=== PATIENT | female | born 1970 | race Caucasian/White ===

== ENCOUNTER 2022-08-08 00:03 | Emergency (ER) | payer MEDICARE, MEDICAID, SELFPAY ==
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
[2022-08-08 00:38] VITALS: BP 132/96; PULSE 88; RESP 20; TEMP 36.6; O2SAT 97; BMI 33.5
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
--- OUTSIDE RECORDS SUMMARY | 2022-08-08 01:00 | XMS_ITS | Continuity of Care Document ---
:1970 Author Organization [facility] Address [address] [place] [address]- Care Team Providers Name Role Phone John Flowers MD Primary Care Physician Encounter [facility] [place] Date(s): 04/24/21 - 04/24/[address] [address]- Discharge Disposition: A-D/C Walkout Attending Physician: Dandre Pastrana MD Admitting Physician: Dandre Pastrana MD Referring Physician: Not on Staff, Referring MD Allergies, Adverse Reactions, Alerts No Known Medication Allergies Immunizations Given and Recorded Vaccine Date Status Refusal Reason influenza virus vaccine, inactivated 10/06/15 Given influenza virus vaccine, inactivated1 11/14/11 Given tetanus/diphtheria/pertussis, acel(Tdap) 11/01/10 Given Tet/Diphth/Acel, Pertussis (oldterm)2 04/29/08 Given Influenza Virus Vaccine (oldterm)3 08/04/07 Given 1Admin Note: vis given Admin Note: VIS [id number] Note: VIS Medications BiPAP Machine See Instructions, # 1 each, Maintenance, Auto BiPAP with EPAP min of 5 and IPAP max of 12 with PS of5, 01/16/21 8:35:00 EDT, Compound Start Date: 01/16/21 Status: Orderedfluconazole 150 mg oral tablet 1 tablet = 150 mg, By Mouth, Once, # 1 tablet, 0 Refills, Soft Stop, 12/12/20 13:11:00 EST, Tablet, [facility][id number], Partial fill upon patient request if the prescription is for a schedule II opioid drug., 155, cm, 02/12/20 12:37:00 EDT, H... Start Date: 12/12/20 Status: Ordered Problem List Condition Effective Dates Status Health Status Informant Occipital neuralgia(Confirmed) Active Glaucoma(Confirmed) Active Lumbar radiculitis(Confirmed) Active Obstructive sleep apnea(Confirmed) Active Posttraumatic stress Active disorder(Confirmed) Vital Signs Most recent to oldest [Reference Range]: 1 2 Weight 72.5 kg (04/24/21 11:41 AM) Oxygen Saturation [94-100 %] 97 % 98 % (04/24/21 11:41 AM) (04/24/21 11:01 AM) Pulse Rate [55-90 bpm] 80 bpm 90 bpm (04/24/21 11:41 AM) (04/24/21 11:01 AM) Blood Pressure [90-138/55-84 mm Hg] 118/91 mm Hg (04/24/21 11:41 AM) Respiratory Rate [16-30 br/min] 16 br/min 18 br/mi n (04/24/21 11:41 AM) (04/24/21 11:01 AM) Temperature [96.8-100.4 DegF] 99.2 DegF (04/24/21 11:41 AM) Mode of Delivery (Oxygen) Room air Room air (04/24/21 11:41 AM) (04/24/21 11:01 AM) Blood pressure sites Arm, left (04/24/21 11:41 AM) Temperature Route Oral (04/24/21 11:41 AM) Dry Weight 72.5 kg (04/24/21 11:41 AM) Social History Social History Type Response Smoking Status Never smoker entered on: 12/03/13 Sex
--- OUTSIDE RECORDS SUMMARY | 2022-08-08 01:00 | XMS_ITS | Continuity of Care Document ---
:1970 Author Organization [facility] Address [address] [place] [address]- Care Team Providers Name Role Phone Lionel FOFNAA, John Guerrero Primary Care Physician Encounter [facility] Date(s): 05/04/20 - 06/03/20 [facility] [address] [place] [address]- [facility] Allergies, Adverse Reactions, Alerts No Known Medication Allergies Immunizations Given and Recorded Vaccine Date Status Refusal Reason influenza virus vaccine, inactivated 10/06/15 Given influenza virus vaccine, inactivated1 11/14/11 Given tetanus/diphtheria/pertussis, acel(Tdap) 11/01/10 Given Tet/Diphth/Acel, Pertussis (oldterm)2 04/29/08 Given Influenza Virus Vaccine (oldterm)3 08/04/07 Given 1Admin Note: vis given Admin Note: VIS [id number] Note: VIS Medications BiPAP Machine See Instructions, # 1 each, Maintenance, Auto BiPAP with EPAP min of 5 and IPAP max of 12 with PS of5, 05/30/20 17:13:00 EDT, Compound Start Date: 05/30/20 Status: Ordered Problem List Condition Effective Dates Status Health Status Informant Occipital neuralgia(Confirmed) Active Glaucoma(Confirmed) Active Lumbar radiculitis(Confirmed) Active Obstructive sleep apnea(Confirmed) Active Posttraumatic stress Active disorder(Confirmed) Social History Social History Type Response Smoking Status Never smoker entered on: 12/03/13 Sex
--- OUTSIDE RECORDS SUMMARY | 2022-08-08 01:01 | XMS_ITS | Continuity of Care Document ---
:1970 Author Organization [facility] Address [address] [place] [address]- Care Team Providers Name Role Phone John Flowers MD Primary Care Physician [place] [facility] [place] 05/06/[place] - 06/05/21 [facility] [address] [place], [place] [address] Attending Physician: AdmSheree feng Admitting Physician: AdmtrSheree Referring Physician: Admtr, Ar8 Allergies, Adverse Reactions, Alerts No Known Medication Allergies Immunizations Given and Recorded Vaccine Date Status Refusal Reason influenza virus vaccine, inactivated 10/06/15 Given influenza virus vaccine, inactivated1 11/14/11 Given tetanus/diphtheria/pertussis, acel(Tdap) 11/01/10 Given Tet/Diphth/Acel, Pertussis (oldterm)2 04/29/08 Given Influenza Virus Vaccine (oldterm)3 08/04/07 Given 1Admin Note: vis given Admin Note: VIS [id number] Note: VIS Medications BiPAP Machine See Instructions, # 1 each, Maintenance, Auto BiPAP with EPAP min of 5 and IPAP max of 12 with PS of5, 01/16/21 8:35:00 EDT, Compound Start Date: 01/16/21 Status: Orderedfluconazole 150 mg oral tablet 1 tablet = 150 mg, By Mouth, Once, # 1 tablet, 0 Refills, Soft Stop, 12/12/20 13:11:00 EST, Tablet, [facility] #[id number], Partial fill upon patient request if the [...]
--- OUTSIDE RECORDS SUMMARY | 2022-08-08 01:01 | XMS_ITS | Continuity of Care Document ---
:1970 Author Organization [facility] Address [address] [place] [address]- Care Team Providers Name Role Phone Lionel FOFANA, John Guerrero Primary Care Physician Encounter [id number] Date(s): 05/30/20 - 06/29/20 [facility] [address] [address]- [facility] Attending Physician: Sheree Rivas Admitting Physician: AdmtrSheree Referring Physician: Admtr, Ar8 Allergies, Adverse Reactions, Alerts No Known Medication Allergies Immunizations Given and Recorded Vaccine Date Status Refusal Reason influenza virus vaccine, inactivated 10/06/15 Given influenza virus vaccine, inactivated1 11/14/11 Given tetanus/diphtheria/pertussis, acel(Tdap) 11/01/10 Given Tet/Diphth/Acel, Pertussis (oldterm)2 04/29/08 Given Influenza Virus Vaccine (oldterm)3 08/04/07 Given 1Admin Note: vis given Admin Note: VIS [id number] Note: VIS Medications BiPAP Machine See Instructions, [...]
--- OUTSIDE RECORDS SUMMARY | 2022-08-08 01:01 | XMS_ITS | Continuity of Care Document ---
:1970 Author Organization [facility] Address [address] [place] [address]- Care Team Providers Name Role Phone Lionel FOFANA, John Guerrero Primary Care Physician Encounter [facility] Date(s): 02/20/22 - 03/22/22 [facility] [address] [place] [id number] Attending Physician: AdmtrSheree Allergies, Adverse Reactions, Alerts No Known Medication Allergies Immunizations Given and Recorded Vaccine Date Status Refusal Reason SARS-CoV-2 (COVID-19) mRNA-1273 vaccine 03/19/21 Recorded SARS-CoV-2 (COVID-19) mRNA-1273 vaccine 02/19/21 Recorded influenza virus vaccine, inactivated 10/06/15 Given influenza virus vaccine, inactivated1 11/14/11 Given tetanus/diphtheria/pertussis, acel(Tdap) 11/01/10 Given Tet/Diphth/Acel, Pertussis (oldterm)2 04/29/08 Given Influenza Virus Vaccine (oldterm)3 08/04/07 Given 1Admin Note: vis given Admin Note: VIS [id number] Note: VIS Medications BiPAP Machine See Instructions, # 1 each, Maintenance, Auto BiPAP with EPAP min of 5 and IPAP max of 12 with PS of5, 01/16/21 8:35:00 EDT, Compound Start Date: 01/16/21 Status: Orderedfluconazole 150 mg oral tablet 1 tablet = 150 mg, By Mouth, Once, # 1 tablet, 0 Refills, Soft Stop, 12/12/20 13:11:00 EST, Tablet, [facility] #[id number], Partial fill upon patient request if the prescription is for a schedule II opioid drug., 155, cm, 02/12/20 12:37:00 EDT, H... Start Date: 12/12/20 Status: OrderedFLUoxetine 10 mg oral capsule 10 mg, 1, capsule, By Mouth, Daily, # 30 capsule, Refills 1, Tot. Refills 1, Maintenance, 06/19/21 10:40:00 EDT, Route to Pharmacy Electronically, [facility] #[id number], Partial fill upon patientrequest if the prescription is for a schedule II... Start Date: 06/19/21 Status: Ordered Problem List Condition Effective Dates Status Health Status Informant Occipital neuralgia(Confirmed) Active Glaucoma(Confirmed) Active Lumbar radiculitis(Confirmed) Active Obese class I(Confirmed) Active Obstructive sleep apnea(Confirmed) Active Posttraumatic stress Active disorder(Confirmed) Social History Social History Type Response Smoking Status Never smoker entered on: 12/03/13 Sex
--- OUTSIDE RECORDS SUMMARY | 2022-08-08 01:01 | XMS_ITS | Continuity of Care Document ---
:1970 Author Organization [facility] Address [address] [place] [address]- Care Team Providers Name Role Phone John Flowers MD Primary Care Physician [place] [facility] [place] 12/06[place]20 - 01/05/21 [facility] [address] [place] [id number] Allergies, Adverse Reactions, Alerts No Known Medication Allergies Immunizations Given and Recorded Vaccine Date Status Refusal Reason influenza virus vaccine, inactivated 10/06/15 Given influenza virus vaccine, inactivated1 11/14/11 Given tetanus/diphtheria/pertussis, acel(Tdap) 11/01/10 Given Tet/Diphth/Acel, Pertussis (oldterm)2 04/29/08 Given Influenza Virus Vaccine (oldterm)3 08/04/07 Given 1Admin Note: vis given Admin Note: VIS [id number] Note: VIS Medications BiPAP Machine See Instructions, # 1 each, Maintenance, Auto BiPAP with EPAP min of 5 and IPAP max of 12 with PS of5, 12/02/20 16:17:00 EST, Compound Start Date: 12/02/20 Status: Orderedfluconazole 150 mg oral tablet 1 tablet = 150 mg, By Mouth, Once, # 1 tablet, 0 Refills, Soft Stop, 12/12/20 13:11:00 EST, Tablet, [facility] #[id number], Partial fill upon patient request if the [...]
--- OUTSIDE RECORDS SUMMARY | 2022-08-08 01:01 | XMS_ITS | Continuity of Care Document ---
:1970 Author Organization [facility] Address [address] [place] [address]- Care Team Providers Name Role Phone John Flowers MD Primary Care Physician Encounter [facility] Date(s): 05/23/21 - 06/22/21 [facility] [address] [place] [id number] Allergies, Adverse Reactions, Alerts No Known Medication Allergies Immunizations Given and Recorded Vaccine Date Status Refusal Reason SARS-CoV-2 (COVID-19) mRNA-1273 vaccine 03/19/21 Recorded SARS-CoV-2 (COVID-19) mRNA-1272 vaccine 02/19/21 Recorded influenza virus vaccine, inactivated 10/06/15 Given influenza virus vaccine, inactivated1 11/14/11 Given tetanus/diphtheria/pertussis, acel(Tdap) 11/01/10 Given Tet/Diphth/Acel, Pertussis (oldterm)2 04/29/08 Given Influenza Virus Vaccine (oldterm)3 08/04/07 Given 1Admin Note: vis given Admin Note: VIS [id number] Note: VIS Medications BiPAP Machine See Instructions, # 1 each, Maintenance, Auto BiPAP with EPAP min of 5 and IPAP max of 12 with PS of5, 01/16/21 8:35:00 EDT, Compound Start Date: 01/16/21 Status: Orderedfluconazole 150 mg oral tablet 1 tablet = 150 mg, By Mouth, Once, # 1 tablet, 0 Refills, Soft Stop, 12/12/20 13:11:00 EST, Tablet, [facility] #[id number], Partial fill upon patient request if the prescription is for a schedule II opioid drug., 155, cm, 02/12/20 12:37:00 EDT, H... Start Date: 12/12/20 Status: OrderedFLUoxetine 10 mg oral capsule 10 mg, 1, capsule, By Mouth, Daily, # 30 capsule, Refills 1, Tot. Refills 1, Maintenance, 06/19/21 10:40:00 EDT, Route to Pharmacy Electronically, [facility] #[id number], Partial fill upon patientrequest if the prescription is for a schedule II... Start Date: 06/19/21 Status: Ordered Problem List Condition Effective Dates Status Health Status Informant Occipital neuralgia(Confirmed) Active Glaucoma(Confirmed) Active Lumbar radiculitis(Confirmed) Active Obstructive sleep apnea(Confirmed) Active Posttraumatic stress Active disorder(Confirmed) Social History Social History Type Response Smoking Status Never smoker entered on: 12/03/13 Sex
--- OUTSIDE RECORDS SUMMARY | 2022-08-08 01:01 | XMS_ITS | Continuity of Care Document ---
:1970 Author Organization [facility] Address [address] [place] [address]- Care Team Providers Name Role Phone Lionel FOFANA, John Guerrero Primary Care Physician [facility]counter [facility] Date(s): 08/17/21 - 09/16/21 [facility] [address] [place] [id number] Allergies, Adverse Reactions, Alerts No Known Medication Allergies Immunizations Given and Recorded Vaccine Date Status Refusal Reason SARS-CoV-2 (COVID-19) mRNA-1273 vaccine 03/19/21 Recorded SARS-CoV-2 (COVID-19) mRNA-1273 vaccine 02/19/21 Recorded influenza virus vaccine, inactivated 10/06/15 Given influenza virus vaccine, inactivated1 11/14/11 Given tetanus/diphtheria/pertussis, acel(Tdap) 11/01/10 Given Tet/Diphth/Acel, Pertussis (oldterm)2 04/29/08 Given Influenza Virus Vaccine (oldterm)3 08/04/07 Given 1Admin Note: vis given Admin Note: VIS [id number] Note: VIS Medications BiPAP Machine See Instructions, # 1 each, Maintenance, Auto BiPAP with EPAP min of 5 and IPAP max of 12 with PS of5, 01/16/21 8:35:00 EDT, Compound Start Date: 01/16/21 Status: Orderedfluconazole 150 mg oral tablet 1 tablet = 150 mg, By Mouth, Once, # 1 tablet, 0 Refills, Soft Stop, 12/12/20 13:11:00 EST, Tablet, [facility] #[id number], Partial fill upon patient request if the prescription is for a schedule II opioid drug., 155, cm, 02/12/20 12:37:00 EDT, H... Start Date: 12/12/20 Status: OrderedFLUoxetine 10 mg oral capsule 10 mg, 1, capsule, By Mouth, Daily, # 30 capsule, Refills 1, Tot. Refills 1, Maintenance, 06/19/21 10:40:00 EDT, Route to Pharmacy Electronically, [facility] #[id number], Partial fill upon patientrequest if the prescription [...]
--- OUTSIDE RECORDS SUMMARY | 2022-08-08 01:01 | XMS_ITS | Continuity of Care Document ---
:1970 Author Organization [facility] Address [address] [place] [address]- Care Team Providers Name Role Phone Lionel FOFANA, John Guerrero Primary Care Physician [facility]counter [facility] Date(s): 09/06/21 - 10/06/21 [facility] [address] [place] [id number] Attending Physician: AdmtrSheree Allergies, Adverse Reactions, Alerts [...] 1Admin Note: vis given Admin Note: VIS [id number] Note: VIS Medications BiPAP Machine See Instructions, # 1 each, Maintenance, Auto BiPAP with EPAP min of 5 and IPAP max of 12 with PS of5, 01/16/21 8:35:00 EDT, Compound Start Date: 01/16/21 Status: Orderedfluconazole 150 mg oral tablet 1 tablet = 150 mg, By Mouth, Once, # 1 tablet, 0 Refills, Soft Stop, 12/12/20 13:11:00 EST, Tablet, [facility] #[id number], Partial fill upon patient request if the prescription is for a schedule II opioid drug., 155, cm, 02/12/20 12:37:00 EDT, H... Start Date: 12/12/20 Status: OrderedFLUoxetine 10 mg oral capsule 10 mg, 1, capsule, By Mouth, Daily, # 30 capsule, Refills 1, Tot. Refills 1, Maintenance, 06/19/21 10:40:00 EDT, Route to Pharmacy Electronically, [facility] #[id number], Partial fill upon patientrequest if the prescription [...]
--- OUTSIDE RECORDS SUMMARY | 2022-08-08 01:01 | XMS_ITS | Continuity of Care Document ---
:1970 Author Organization [facility] Address [address] [place] [address]- Care Team Providers Name Role Phone John Flowers MD Primary Care Physician Encounter [facility] Date(s): 06/23/21 - 08/17/21 [facility] [address] [place] [id number] Attending Physician: John Flowers MD Admitting Physician: John Flowers MD Allergies, Adverse Reactions, Alerts No Known [...] 1Admin Note: vis given Admin Note: VIS [id number] Note: VIS Medications BiPAP Machine See Instructions, # 1 each, Maintenance, Auto BiPAP with EPAP min of 5 and IPAP max of 12 with PS of5, 01/16/21 8:35:00 EDT, Compound Start Date: 01/16/21 Status: Orderedfluconazole 150 mg oral tablet 1 tablet = 150 mg, By Mouth, Once, # 1 tablet, 0 Refills, Soft Stop, 12/12/20 13:11:00 EST, Tablet, [facility] #[id number], Partial fill upon patient request if the prescription is for a schedule II opioid drug., 155, cm, 02/12/20 12:37:00 EDT, H... Start Date: 12/12/20 Status: OrderedFLUoxetine 10 mg oral capsule 10 mg, 1, capsule, By Mouth, Daily, # 30 capsule, Refills 1, Tot. Refills 1, Maintenance, 06/19/21 10:40:00 EDT, Route to Pharmacy Electronically, [facility] #[id number], Partial fill upon patientrequest if the prescription is for a schedule II... Start Date: 06/19/21 Status: Ordered Problem List Condition Effective Dates Status Health Status Informant Occipital neuralgia(Confirmed) Active Glaucoma(Confirmed) Active Lumbar radiculitis(Confirmed) Active Obstructive sleep apnea(Confirmed) Active Posttraumatic stress Active disorder(Confirmed) Social History Social History Type Response Smoking Status Never smoker entered on: 12/03/13 Sex
--- OUTSIDE RECORDS SUMMARY | 2022-08-08 01:01 | XMS_ITS | Continuity of Care Document ---
:1970 Author Organization [facility] Address [address] [place] [address]- Care Team Providers Name Role Phone Lionel FOFANA, John Guerrero Primary Care Physician Encounter [facility] [place] Date(s): 12/14/21 - 12/21/21 [facility] [address] [place], [place] [address] Attending Physician: Alvarez Frye MD Referring Physician: John Flowers MD Allergies, Adverse Reactions, [...] 1Admin Note: vis given Admin Note: VIS [id number] Note: VIS Medications BiPAP Machine See Instructions, # 1 each, Maintenance, Auto BiPAP with EPAP min of 5 and IPAP max of 12 with PS of5, 01/16/21 8:35:00 EDT, Compound Start Date: 01/16/21 Status: Orderedfluconazole 150 mg oral tablet 1 tablet = 150 mg, By Mouth, Once, # 1 tablet, 0 Refills, Soft Stop, 12/12/20 13:11:00 EST, Tablet, [facility] #[id number], Partial fill upon patient request if the prescription is for a schedule II opioid drug., 155, cm, 02/12/20 12:37:00 EDT, H... Start Date: 12/12/20 Status: OrderedFLUoxetine 10 mg oral capsule 10 mg, 1, capsule, By Mouth, Daily, # 30 capsule, Refills 1, Tot. Refills 1, Maintenance, 06/19/21 10:40:00 EDT, Route to Pharmacy Electronically, [facility] #[id number], Partial fill upon patientrequest if the prescription is for a schedule II... Start Date: 06/19/21 Status: Ordered Problem List Condition Effective Dates Status Health Status Informant Occipital neuralgia(Confirmed) Active Glaucoma(Confirmed) Active Lumbar radiculitis(Confirmed) Active Obese class I(Confirmed) Active Obstructive sleep apnea(Confirmed) Active Posttraumatic stress Active disorder(Confirmed) Vital Signs Most recent to oldest [Reference Range]: 1 Height 155 cm (12/14/21 1:31 PM) Oxygen Saturation [94-100 %] 98 % (12/14/21 1:31 PM) Pulse Rate [55-90 bpm] 70 bpm (12/14/21 1:31 PM) Blood Pressure [90-138/55-84 mm Hg] 137/89 mm Hg (12/14/21 1:31 PM) Respiratory Rate [16-30 br/min] 15 br/min *L* (12/14/21 1:31 PM) Temperature [96.8-100.4 DegF] 98.0 DegF (12/14/21 1:31 PM) Mode of Delivery (Oxygen) Room air (12/14/21 1:31 PM) Blood pressure sites Arm, left (12/14/21 1:31 PM) Temperature Route Temporal (12/14/21 1:31 PM) Social History Social History Type Response Smoking Status Never smoker entered on: 12/03/13 Sex
--- OUTSIDE RECORDS SUMMARY | 2022-08-08 01:01 | XMS_ITS | Continuity of Care Document ---
:1970 Author Organization [facility] Address [address] [place] [address]- Care Team Providers Name Role Phone Lionel FOFANA, John Guerrero Primary Care Physician [facility]counter [facility] Date(s): 02/19/22 - 03/22/22 [facility] [address] [place] [id number] Attending Physician: Ochoa Thomas MD Admitting Physician: Ochoa Thomas MD Allergies, Adverse Reactions, Alerts No Known [...] 1Admin Note: vis given Admin Note: VIS [id number] Note: VIS Medications BiPAP Machine See Instructions, # 1 each, Maintenance, Auto BiPAP with EPAP min of 5 and IPAP max of 12 with PS of5, 01/16/21 8:35:00 EDT, Compound Start Date: 01/16/21 Status: Orderedfluconazole 150 mg oral tablet 1 tablet = 150 mg, By Mouth, Once, # 1 tablet, 0 Refills, Soft Stop, 12/12/20 13:11:00 EST, Tablet, [facility] #[id number], Partial fill upon patient request if the prescription is for a schedule II opioid drug., 155, cm, 02/12/20 12:37:00 EDT, H... Start Date: 12/12/20 Status: OrderedFLUoxetine 10 mg oral capsule 10 mg, 1, capsule, By Mouth, Daily, # 30 capsule, Refills 1, Tot. Refills 1, Maintenance, 06/19/21 10:40:00 EDT, Route to Pharmacy Electronically, [facility] #[id number], Partial fill upon patientrequest if the prescription [...]
--- OUTSIDE RECORDS SUMMARY | 2022-08-08 01:01 | XMS_ITS | Continuity of Care Document ---
:1970 Author Organization [facility] Address [address] [place] [address]- Care Team Providers Name Role Phone Lionel FOFANA, John Guerrero Primary Care Physician [place] [facility] [place] 09/[place]20 [place] 10/09/20 [facility] [address] [place] [id number] Attending Physician: AdmSheree feng Admitting Physician: Admtr, Sheree Referring Physician: Admtr, Ar8 Allergies, Adverse Reactions, Alerts No Known Medication Allergies Immunizations Given and Recorded Vaccine Date Status Refusal Reason influenza virus vaccine, inactivated 10/06/15 Given influenza virus vaccine, inactivated1 11/14/11 Given tetanus/diphtheria/pertussis, acel(Tdap) 11/01/10 Given Tet/Diphth/Acel, Pertussis (oldterm)2 04/29/08 Given Influenza Virus Vaccine (oldterm)3 08/04/07 Given 1Admin Note: vis given Admin Note: VIS [id number] Note: VIS Medications BiPAP Machine See Instructions, [...]
--- OUTSIDE RECORDS SUMMARY | 2022-08-08 01:01 | XMS_ITS | Continuity of Care Document ---
:1970 Author Organization [facility] Address [address] [place] [address]- Care Team Providers Name Role Phone John Flowers MD Primary Care Physician Encounter [facility] [place] Date(s): 12/14/21 - 01/13/22 [facility] [address] [place], [place] [address] Attending Physician: AdmSheree feng Admitting Physician: Admtr, [...] 1Admin Note: vis given Admin Note: VIS [id number] Note: VIS Medications BiPAP Machine See Instructions, # 1 each, Maintenance, Auto BiPAP with EPAP min of 5 and IPAP max of 12 with PS of5, 01/16/21 8:35:00 EDT, Compound Start Date: 01/16/21 Status: Orderedfluconazole 150 mg oral tablet 1 tablet = 150 mg, By Mouth, Once, # 1 tablet, 0 Refills, Soft Stop, 12/12/20 13:11:00 EST, Tablet, [facility] #[id number], Partial fill upon patient request if the prescription is for a schedule II opioid drug., 155, cm, 02/12/20 12:37:00 EDT, H... Start Date: 12/12/20 Status: OrderedFLUoxetine 10 mg oral capsule 10 mg, 1, capsule, By Mouth, Daily, # 30 capsule, Refills 1, Tot. Refills 1, Maintenance, 06/19/21 10:40:00 EDT, Route to Pharmacy Electronically, [facility] #[id number], Partial fill upon patientrequest if the prescription [...]
--- OUTSIDE RECORDS SUMMARY | 2022-08-08 01:01 | XMS_ITS | Continuity of Care Document ---
:1970 Author Organization [facility] Address [address] [place] [id number]- Care Team Providers Name Role Phone John Flowers MD Primary Care Physician Encounter [facility] Date(s): 01/13/21 - 02/12/21 [facility] [address] [address] Attending Physician: Admtr, Sheree Admitting Physician: Admtr, Ar8 Referring Physician: Admtr, Ar8 Allergies, Adverse Reactions, Alerts No Known Medication Allergies Immunizations Given and Recorded Vaccine Date Status Refusal Reason influenza virus vaccine, inactivated 10/06/15 Given influenza virus vaccine, inactivated1 11/14/11 Given tetanus/diphtheria/pertussis, acel(Tdap) 11/01/10 Given Tet/Diphth/Acel, Pertussis (oldterm)2 04/29/08 Given Influenza Virus Vaccine (oldterm)3 08/04/07 Given 1Admin Note: vis given Admin Note: VIS [id number] Note: VIS Medications BiPAP Machine See Instructions, # 1 each, Maintenance, Auto BiPAP with EPAP min of 5 and IPAP max of 12 with PS of5, 01/16/21 8:35:00 EDT, Compound Start Date: 01/16/21 Status: Orderedfluconazole 150 mg oral tablet 1 tablet = 150 mg, By Mouth, Once, # 1 tablet, 0 Refills, Soft Stop, 12/12/20 13:11:00 EST, Tablet, [facility] #[id number], Partial fill upon patient request if the [...]
--- OUTSIDE RECORDS SUMMARY | 2022-08-08 01:01 | XMS_ITS | Continuity of Care Document ---
:1970 Author Organization [facility] Address [address] [place] [address]- Care Team Providers Name Role Phone John Flowers MD Primary Care Physician Encounter [facility] Date(s): 05/06/21 - 05/13/21 [facility] [address], [place] [address] Encounter Diagnosis Pharyngitis (Discharge Diagnosis) - 05/06/21 Attending Physician: Alvarez Frye MD Referring Physician: John Flowers MD Allergies, Adverse Reactions, Alerts No Known Medication Allergies Immunizations Given and Recorded Vaccine Date Status Refusal Reason influenza virus vaccine, inactivated 10/06/15 Given influenza virus vaccine, inactivated1 11/14/11 Given tetanus/diphtheria/pertussis, acel(Tdap) 11/01/10 Given Tet/Diphth/Acel, Pertussis (oldterm)2 04/29/08 Given Influenza Virus Vaccine (oldterm)3 08/04/07 Given 1Admin Note: vis given Admin Note: VIS [id number] Note: VIS Medications BiPAP Machine See Instructions, # 1 each, Maintenance, Auto BiPAP with EPAP min of 5 and IPAP max of 12 with PS of5, 01/16/21 8:35:00 EDT, Compound Start Date: 01/16/21 Status: Orderedfluconazole 150 mg oral tablet 1 tablet = 150 mg, By Mouth, Once, # 1 tablet, 0 Refills, Soft Stop, 12/12/20 13:11:00 EST, Tablet, [facility] #[id number], Partial fill upon patient request if the prescription is for a schedule II opioid drug., 155, cm, 02/12/20 12:37:00 EDT, H... Start Date: 12/12/20 Status: Orderedpenicillin V potassium 500 mg oral tablet 0.5 tablet = 250 mg, By Mouth, Every 8 hours, for 10 days, on an empty stomach, # 15 tablet, 0 Refills, Acute 05/16/21 10:28:00 EDT, 05/06/21 10:28:00 EDT, Tablet, [id number], Partial fill upon patient request if the prescription is f... Start Date: 05/06/21 Stop Date: 05/16/21 Status: Ordered Problem List Condition Effective Dates Status Health Status Informant Occipital neuralgia(Confirmed) Active Glaucoma(Confirmed) Active Lumbar radiculitis(Confirmed) Active Obstructive sleep apnea(Confirmed) Active Posttraumatic stress Active disorder(Confirmed) Diagnosis Diagnosis Type Effective Dates Health Status Clinical Serv ice Informant Pharyngitis Discharge 05/06/21 Diagnosis Vital Signs Most recent to oldest [Reference Range]: 1 Height 155 cm (05/06/21 10:06 AM) Oxygen Saturation [94-100 %] 98 % (05/06/21 10:06 AM) Pulse Rate [55-90 bpm] 65 bpm (05/06/21 10:06 AM) Blood Pressure [90-138/55-84 mm Hg] 127/82 mm Hg (05/06/21 10:06 AM) Respiratory Rate [16-30 br/min] 20 br/min (05/06/21 10:06 AM) Temperature [96.8-100.4 DegF] 98.4 DegF (05/06/21 10:06 AM) Mode of Delivery (Oxygen) Room air (05/06/21 10:06 AM) Blood pressure sites Arm, right (05/06/21 10:06 AM) Temperature Route Temporal (05/06/21 10:06 AM) Social History Social History Type Response Smoking Status Never smoker entered on: 12/03/13 Sex
--- OUTSIDE RECORDS SUMMARY | 2022-08-08 01:01 | XMS_ITS | Continuity of Care Document ---
:1970 Author Organization [facility] Address [address] [place] [address]- Care Team Providers Name Role Phone Lionel FOFANA, John Guerrero Primary Care Physician Encounter [facility] Date(s): 12/01/19 - 12/11/19 [facility] [address] [place] [address]- [facility] Attending Physician: Admtr, Ar8 Allergies, Adverse Reactions, Alerts No Known Medication Allergies Immunizations Given and Recorded Vaccine Date Status Refusal Reason influenza virus vaccine, inactivated 10/06/15 Given influenza virus vaccine, inactivated1 11/14/11 Given tetanus/diphtheria/pertussis, acel(Tdap) 11/01/10 Given Tet/Diphth/Acel, Pertussis (oldterm)2 04/29/08 Given Influenza Virus Vaccine (oldterm)3 08/04/07 Given 1Admin Note: vis given Admin Note: VIS [id number] Note: VIS Medications BiPAP Machine See Instructions, # 1 each, Maintenance, Auto BiPAP with EPAP min of 5 and IPAP max of 12 with PS of5, 04/21/19 17:04:14 EDT, Compound Start Date: 04/21/19 Status: Ordereddiclofenac 1% topical gel 1 application, Topically, 4 times a day, # 100 Gm, 0 Refills, Maintenance, 12/01/19 16:17:00 EST, Gel, [facility] #[id number], 154.94, cm, 12/01/19 16:09:00 EST, Height Start Date: 12/01/19 Status: Ordereddiclofenac sodium 50 mg oral delayed release tablet 1 tablet, By Mouth, 2 times a day, # 180 tablet, 0 Refills, Maintenance, 12/07/19 9:25:00 EST, [facility] #[id number], 154.94, cm, 12/01/19 16:09:00 EST, Height Start Date: 12/07/19 Status: OrderedIbuprofen PRN, Refills 0, Maintenance, as needed for pain, 10/08/18 14:47:29 EST Start Date: 10/08/18 Status: OrderedTylenol 325 mg oral tablet 650 mg, 2, tablet, By Mouth, Every 4 hours, PRN, # 120 tablet, Refills 0, Maintenance, as needed forpain, 10/08/18 14:47:40 EST Start Date: 10/08/18 Status: Ordered Problem List Condition Effective Dates Status Health Status Informant Occipital neuralgia(Confirmed) Active Glaucoma(Confirmed) Active Lumbar radiculitis(Confirmed) Active Obstructive sleep apnea(Confirmed) Active Posttraumatic stress Active disorder(Confirmed) Social History Social History Type Response Smoking Status Never smoker entered on: 12/03/13 Sex
--- OUTSIDE RECORDS SUMMARY | 2022-08-08 01:01 | XMS_ITS | Continuity of Care Document ---
:1970 Author Organization [facility] Address [address] [place] [address]- Care Team Providers Name Role Phone John Flowers MD Primary Care Phys[id number]): [facility]20 [facility] [address] [place] [address] [facility] Attending Physician: Nel Gómez MD Admitting Physician: Nel Gómez MD Referring Physician: John Flowers MD Allergies, Adverse Reactions, Alerts No Known Medication Allergies Immunizations Given and Recorded Vaccine Date Status Refusal Reason influenza virus vaccine, inactivated 10/06/15 Given influenza virus vaccine, inactivated1 11/14/11 Given tetanus/diphtheria/pertussis, acel(Tdap) 11/01/10 Given Tet/Diphth/Acel, Pertussis (oldterm)2 04/29/08 Given Influenza Virus Vaccine (oldterm)3 08/04/07 Given 1Admin Note: vis given Admin Note: VIS [id number] Note: VIS Medications BiPAP Machine See Instructions, [...]
[2022-08-08 02:43] VITALS: BP 134/85; PULSE 78; RESP 17; O2SAT 99
[2022-08-08 05:16] VITALS: BP 107/72; PULSE 70; RESP 17; TEMP 36.9; O2SAT 97
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
[2022-08-08] MEDS: diphenhydrAMINE HCL 50 MG/ML VIAL IVPUSH (07:42)
[2022-08-08 09:55] LABS: MANUAL DIFF FLAG NO
[2022-08-08] MEDS: HYDROmorphone HCl 0.5 MG/0.5 ML SYRINGE IVPUSH (09:55)
[2022-08-08] MEDS: Acetaminophen 325 MG TABLET 650 MG PO (09:55)
[2022-08-08 10:01] LABS: Basophils Absolute Auto 0.1 X10*3/uL (0.0-0.2); Basophils Percent Auto 0.6 % (0-2); Eosinophils Absolute Auto 0.1 X10*3/uL (0.0-0.4); Hematocrit 35.5 % (37.0-47.0); Hemoglobin 11.4 g/dl (12.0-16.0); Imm Gran Abs Auto 0.04 X10*3/uL (0.00-0.03); Imm Gran Pct Auto 0.4 % (0.0-0.4); Lymphocytes Absolute Auto 1.7 X10*3/uL (1.2-4.9); Mean Corpuscular HGB Conc 32.1 g/dl (31.0-35.0); Mean Corpuscular Hemoglobin 27.5 pg (27.0-33.0); Mean Corpuscular Volume 85.7 fL (80.0-98.0); Mean Platelet Volume 10.2 fL (9.4-12.3); Monocytes Absolute Auto 0.8 X10*3/uL (0.1-1.2); Monocytes Percent Auto 7.8 % (2-11); Neutrophils Absolute Auto 7.3 x10*3/uL (2.0-8.3); Neutrophils Percent Auto 73.2 % (45-73); Platelet Count 259 X10*3/uL (160-400); Red Blood Count 4.14 X10*6/uL (4.20-5.50); Red Cell Distribution Width 15.2 % (11.0-16.0); White Blood Count 9.9 X10*3/uL (4.8-10.8)
[2022-08-08 10:08] LABS: INTERNATIONAL NORM RATIO 1.1 (0.9-1.1); Prothrombin Time 12.4 SEC (10.0-13.1)
[2022-08-08 10:11] LABS: Partial Thromboplastin Time 27.7 SEC (26.0-36.4)
[2022-08-08 10:12] LABS: IDNOW Serial# 9DB6401D; Influenza A Negative (Negative); Influenza B2 Negative (Negative)
[2022-08-08 10:13] LABS: COVID-19 Test Negative (Negative); IDNOW Serial# 55D5AD1C
[2022-08-08 10:22] VITALS: BP 117/70; PULSE 67; RESP 16; TEMP 36.9; O2SAT 96
[2022-08-08 10:50] LABS: Alanine Aminotransferase 16 U/L (0-31); Albumin Level 3.8 g/dL (3.5-5.0); Alkaline Phosphatase 72 U/L (39-117); Anion Gap 11 (12-20); Aspartate Amino Transferase 17 U/L (5-31); Bilirubin Total 0.5 mg/dL (0.0-1.0); Blood Urea Nitrogen 8 mg/dL (9-16); Calcium 8.9 mg/dL (8.4-10.2); Carbon Dioxide 24 mmol/L (22-29); Chloride 107 mmol/L (96-108); Creatinine Clr Calc Pharmacy 81.7; Estimated Glomerular Filt Rate > 60; Glucose Random 91 mg/dL (60-115); Potassium 3.9 mmol/L (3.3-5.1); Sodium 138 mmol/L (135-145); Total Protein 6.9 g/dL (6.5-8.0)
== END 2022-08-08 11:08 | disposition home or self-care (01) ==
PROVIDERS: Emergency Provider Emergency Medicine Emergency Medical Services
DX: S09.90XA Unspecified injury of head, initial encounter (principal); S39.012A Strain of muscle, fascia and tendon of lower back, initial encounter; R51.9 Headache, unspecified; R20.0 Anesthesia of skin; Y04.2XXA Assault by strike against or bumped into by another person, initial encounter; Y93.9 Activity, unspecified; Y92.9 Unspecified place or not applicable; Y99.9 Unspecified external cause status; Z79.899 Other long term (current) drug therapy; Z20.822 Contact with and (suspected) exposure to COVID-19
CPT/HCPCS: 36415; 70450; 70486; 72125; 72131; 80053; 85025; 85610; 85730; 87502; 87635; 96374; 96375; 99284; J1170; J1200

== ENCOUNTER 2022-08-11 22:33 | Emergency (ER) | payer MEDICARE, MEDICAID, SELFPAY ==
[2022-08-11 22:34] VITALS: BP 140/83; PULSE 77; RESP 18; TEMP 36.2; O2SAT 96; BMI 31.8
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
== END 2022-08-12 01:48 | disposition home or self-care (01) ==
PROVIDERS: Emergency Provider Emergency Medicine
DX: S00.12XA Contusion of left eyelid and periocular area, initial encounter (principal); Y04.2XXA Assault by strike against or bumped into by another person, initial encounter; Y93.9 Activity, unspecified; Y92.9 Unspecified place or not applicable; Y99.9 Unspecified external cause status; Z79.899 Other long term (current) drug therapy
CPT/HCPCS: 99282

== ENCOUNTER 2023-08-31 19:20 | Emergency (ER) | payer MEDICARE, MEDICAID, SELFPAY ==
[2023-08-31 19:22] VITALS: BP 150/89; PULSE 103; RESP 20; TEMP 37.4; O2SAT 100; BMI 31.6
[2023-08-31 19:57] LABS: COVID-19 Test Negative (Negative); IDNOW Serial# 9DB6401D; IDNOW Serial# BCCEAD1C; Influenza A Positive (Negative); Influenza B2 Negative (Negative)
--- NOTE | 2023-08-31 20:25 | ED_ITS ---
HPI - General Adult General Chief complaint: General Medical Stated complaint: headache,stuffy nose body aches Time Seen by Provider: 08/31/23 20:25 Source: patient Mode of arrival: ambulatory Limitations: no limitations History of Present Illness HPI narrative: 52 year old female with no significant pmhx presents to the ED today with dry cough, nasal congestion, body aches, and headache since last night. Reports visiting her mom at [facility] yesterday and upon returning home began to have flu-like symptoms. Has not taken anything at home for this. Headache is diffuse, worse with coughing, described as a pressure sensation. No known sick contacts. COVID and flu vaccines UTD. Denies dizziness, vision changes, sore throat, difficulty swallowing, chest pain or shortness of breath, nausea/ vomiting, abdominal pain, diarrhea or constipation. Related Data Previous Rx's Medication Instructions Recorded [id number]-oswrflwhaqjra-isfvfabj 1 tab PO Q6H PRN pain #20 tabs 08/08/22 50 mg-325 mg-40 mg tablet cyclobenzaprine 10 mg tablet 10 mg PO TID PRN muscle spasm #14 08/08/22 tabs ibuprofen 600 mg tablet 600 mg PO Q6H PRN pain #30 tabs 08/08/22 lidocaine 5 % topical patch 1 patch topical DAILY #30 ea 08/08/22 ondansetron 4 mg disintegrating 4 mg PO Q8H PRN nausea and 08/08/22 tablet vomiting #20 tabs cyclobenzaprine 10 mg tablet 10 mg PO TID PRN muscle spasm #10 08/12/22 tabs ibuprofen 600 mg tablet 600 mg PO TID PRN pain #14 tabs 08/12/22 Allergies Allergy/AdvReac Type Severity Reaction Status Date / Time No Known Allergies Allergy Verified 08/31/23 19:25 Review of Systems Review of Systems: Constitutional: No fever, chills, fatigue, night sweats, weight changes ENT/Mouth: No ear pain, hearing loss, +nasal congestion, sinus pain, rhinorrhea, sore throat Eyes: No eye pain, swelling, redness, vision changes, discharge Cardio: No chest pain, palpitations, ALCAZAR, orthopnea, peripheral edema Pulm: No SOB, +cough, sputum, wheezing, dyspnea, hemoptysis GI: No nausea, vomiting, hematemesis, abdominal pain, diarrhea, constipation, hematochezia, melena : No irregular bleeding, dysuria, frequency, urgency, hesitancy, hematuria, flank pain, urinary flow changes, urinary incontinence or retention MSK: No back pain, neck pain, joint pain, myalgias Skin: No lesions, rashes Neuro: No weakness, numbness, paresthesias, LOC, dizziness, +headache All other systems reviewed and are negative. [facility] Past Medical History Attestation statement: The following information was validated with the patient. Source: old records reviewed and nursing notes reviewed Medical History Migraines Glaucoma Social History Alcohol intake: never Smoked in Last 30 Days: No Use of substances other than those prescribed or required for medical reasons: No Advance Directives: No Advance Directives Information Provided: No Patient : No Physical Exam ED Vital Signs: Vital Signs - 24 hr 08/31/23 19:22 08/31/23 20:31 08/31/23 21:19 Temperature 99.4 F 102.4 F H 102.2 F H Pulse Rate 103 H 95 Respiratory Rate 20 18 Blood Pressure 150/89 H 137/72 Pulse Oximetry 100 96 Oxygen Delivery Method Room Air Room Air BMI result Body Mass Index 31.6 Febrile Const General: cooperative, no acute distress, alert, awake and ill appearing Orientation/consciousness: patient oriented x3 Limitations: no limitations HENMT Other: + posterior oropharynx without erythema or edema. No tonsillar exudates. Uvula is midline. Controlling secretions and speaking in complete sentences. Ears: hearing grossly normal bilaterally, external ears normal, TM's normal bilaterally, EAC's normal, mastoids normal and no periauricular adenopathy General nose exam: Normal external nose present Face and sinus: Yes normal facial exam and Yes sinuses nontender Eyes General: appearance normal, both eyes and all related structures Conjunctivae: conjunctivae normal Sclerae: sclerae normal Pupils: Equal, round and reactive pupils present Neck Neck: Yes normal visual inspection, Yes no lymphadenopathy and Yes no meningeal signs Resp Effort & Inspection: normal respiratory effort, able to speak in complete sentences, no respiratory distress and no use of accessory muscles Auscultation: clear to auscultation bilaterally and no wheezes Cardio Rate: regular rate Rhythm: regular rhythm Peripheral pulses: radial pulses present GI Inspection: Yes normal to inspection Palpation (GI): Soft to palpation and nontender Skin General skin exam: no rashes or lesions noted Neuro General: patient oriented x3, gait normal, moves all extremities and no meningeal signs Cranial nerves: Yes Equal, round and reactive pupils present Extrem General: Yes normal to inspection and Yes capillary refill normal Course Course Course Narrative: Viral serology positive for influenza A > patient aware. Patient febrile to 102F in the ED. Tylenol ordered. Reevaluation(s) Reevaluation #1: [id number]-- On re-evaluation, patient's vital signs have stabilized. She is no longer tachycardic. Her temperature is gradually decreasing after Tylenol administration. I feel comfortable discharging patient home with strict return precautions. Discussed taking Tylenol and ibuprofen for fever and body aches at home. All questions answered at this time. Patient is agreeable disposition stable for discharge. Medications Administered Discontinued Medications Generic Name Dose Route Start Last Admin Trade Name Freq PRN Reason Stop Dose Admin Acetaminophen 975 mg 08/31/23 20:37 08/31/23 20:48 Acetaminophen 325 Mg Tablet PO 08/31/23 20:38 975 mg ONCE ONE Administration Medical Decision Making Medical Decision Making [facility] Narrative: 52 year old female with no significant pmhx presents to the ED today with dry cough, nasal congestion, body aches, and headache since last night. VS notable for fever of 102F > tylenol given. Patient is nontoxic appearing and in NAD. Sleeping in room. No sinus tenderness. Posterior oropharynx without erythema/edema/tonsilar exudates. Uvula midline. Controlling secretions and speaking complete sentences. RRR. Lungs clear to auscultation bilaterally, no wheezes. Exam nonfocal. Clinical concern for viral syndrome. Concern for [place] vs migraines. Unlikely pneumonia, strep, mono, [employer], retropharyngeal abscess, epiglottitis, otitis media/externa. Unlikely ICH, CVA/TIA, GCA. Viral serology obtained in triage. Will review results and re-evaluate patient. Differential Diagnosis Differential Diagnoses: The differential diagnosis associated with the presentation includes As above. Admission/Observation Not indicated. Lab Data [facility] Lab Attestation statement: I reviewed the patient's lab results. As above. Labs: Lab Results 08/31/23 Range/Units 19:31 COVID-19 (MONIQUE) Negative (Negative) COVID-19 Clin Com See Note Influenza Type A (LIZETTE) Positive A (Negative) Influenza Type B (LIZETTE) Negative (Negative) Influenza A & B Note See Note External Record Review External record reviewed: Inpatient record Prescription Management I considered prescription management with: Pain Medication Critical Care Time Critical Care Time Critical Care Time: No Discharge Plan Discharge Clinical Impression: Influenza A Patient Disposition: Home, Self-Care Instructions: Influenza (ED), Flu Shot (Vaccine) for Adults (ED) Additional Instructions: You tested positive for influenza type A today. This is a virus and does not warrant antibiotic treatment. The treatment for this is symptomatic and should resolve on its own over the next week. You were given a dose of Tylenol in the emergency department for fever today. Please continue taking Tylenol and ibuprofen at home as needed for fever or body aches. Please follow-up with your primary care provider as needed. If her symptoms persist or worsen please return to the emergency department. The case of an emergency call 911. Prescriptions: No Action lumgszfkym-kvfcgxfdkhfvv-oeks 50-325-40 mg tablet 1 tab PO Q6H PRN (Reason: pain) Qty: 20 0RF cyclobenzaprine 10 mg tablet 10 mg PO TID PRN (Reason: muscle spasm) Qty: 14 0RF lidocaine 5 % adhesive patch,medicated 1 patch topical DAILY Qty: 30 0RF Rx Instructions: leave on most painful area for up to 12 hrs ibuprofen 600 mg tablet 600 mg PO Q6H PRN (Reason: pain) Qty: 30 0RF ondansetron 4 mg tablet,disintegrating 4 mg PO Q8H PRN (Reason: nausea and vomiting) Qty: 20 0RF ibuprofen 600 mg tablet 600 mg PO TID PRN (Reason: pain) Qty: 14 0RF cyclobenzaprine 10 mg tablet 10 mg PO TID PRN (Reason: muscle spasm) Qty: 10 0RF Referrals: Physician,Unknown J [Primary Care Provider] - Stand Alone Forms: Work/School Release Interventions: ED Discharge Assessment Last Done: 08/31/23 21:33 Discharge Date/Time: 08/31/23 21:35
[2023-08-31 20:31] VITALS: BP 137/72; PULSE 95; RESP 18; TEMP 39.1; O2SAT 96
[2023-08-31] MEDS: Acetaminophen 325 MG TABLET 975 MG PO (20:48)
[2023-08-31 21:19] VITALS: TEMP 39
== END 2023-08-31 21:35 | disposition home or self-care (01) ==
PROVIDERS: Emergency Provider Emergency Medicine Emergency Medical Services
DX: J10.1 Influenza due to other identified influenza virus with other respiratory manifestations (principal); Z11.52 Encounter for screening for COVID-19
CPT/HCPCS: 87502; 87635; 99283; 99284

== ENCOUNTER 2023-12-25 09:11 | Emergency (ER) | payer OTHER, SELFPAY | END 2023-12-25 10:27 | disposition left against medical advice (07) | LOC: HO.ED 10:26 | PROVIDERS: Emergency Provider Emergency Medicine | DX: H93.8X2 Other specified disorders of left ear (principal) ==

== ENCOUNTER 2023-12-30 17:19 | Emergency (ER) | payer OTHER, SELFPAY ==
[2023-12-30 18:43] VITALS: BP 119/85; PULSE 91; RESP 16; TEMP 36.6; O2SAT 99; BMI 31.5
--- NOTE | 2023-12-30 18:45 | ED.GENADULT ---
HPI - General Adult General Chief complaint: Ear Problems Stated complaint: left ear pain Time Seen by Provider: 12/30/23 19:00 Source: patient Mode of arrival: ambulatory History of Present Illness HPI narrative: 53-year-old female who reports left-sided scalp/ear/facial pain without any noted rashes, fevers, chills, visual changes, runny nose, sore throat. Patient reports that she does suffer from migraines but they are well controlled at this time. She also denies any sick contacts. Related Data Previous Rx's Medication Instructions Recorded brmwirnnlf-bgtgmnbnzzwvg-kukslius 1 tab PO Q6H PRN pain #20 tabs 08/08/22 50 mg-325 mg-40 mg tablet cyclobenzaprine 10 mg tablet 10 mg PO TID PRN muscle spasm #14 08/08/22 tabs ibuprofen 600 mg tablet 600 mg PO Q6H PRN pain #30 tabs 08/08/22 lidocaine 5 % topical patch 1 patch topical DAILY #30 ea 08/08/22 ondansetron 4 mg disintegrating 4 mg PO Q8H PRN nausea and 08/08/22 tablet vomiting #20 tabs cyclobenzaprine 10 mg tablet 10 mg PO TID PRN muscle spasm #10 08/12/22 tabs ibuprofen 600 mg tablet 600 mg PO TID PRN pain #14 tabs 08/12/22 Allergies Allergy/AdvReac Type Severity Reaction Status Date / Time No Known Allergies Allergy Verified 08/31/23 19:25 Review of Systems Review of Systems: Pertinent positives and negatives as stated in HPI [facility] Past Medical History Source: nursing notes reviewed Medical History Migraines Glaucoma Social History Social History Alcohol intake: never Advance Directives: No Advance Directives Information Provided: Yes Physical Exam ED Vital Signs: Vital Signs - 24 hr 12/30/23 18:43 12/30/23 20:30 Temperature 98 F 98.6 F Pulse Rate 91 76 Respiratory Rate 16 16 Blood Pressure 119/85 148/93 H Pulse Oximetry 99 97 Oxygen Delivery Method Room Air Room Air BMI result Body Mass Index 31.5 VITAL SIGNS: Reviewed. GENERAL: Well developed, well nourished, in no acute distress. HEAD: Normocephalic/atraumatic EYES: PERRLA, EOMI EARS: Ext canals without abnormality, TMs non-bulging and non-erythematous NOSE: Nares patent bilateral OROPHARYNX: no oral lesions noted, posterior pharynx clear and non-erythematous without noted tonsillar enlargement/erythema/exudates NECK: Supple, no adenopathy LUNGS: Normal breath sounds. No adventitious sounds or accessory muscle use. SpO2<97> CARDIOVASCULAR: Regular rate and rhythm without noted murmurs ABDOMEN: Soft, non-tender, non-distended with bowel sounds. MUSCULOSKELETAL: No tenderness, deformities, or effusions noted on gross inspection. EXTREMITIES: No cyanosis, clubbing or edema. SKIN: Inspection of the skin reveals no rashes NEUROLOGIC: Alert and oriented x 4. Strength and sensation to light touch were grossly intact x 4. Course Course Course Narrative: RME performed by Camilla Candelario PA-C. Patient is a 53 year old assigned female at presenting to the emergency department with a headache and left ear pain. Detailed physical exam and review of systems are deferred to the swimming pool maintenance. Swabs ordered. Patient placed back in the waiting room pending room availability and results. Medications Administered Discontinued Medications Generic Name Dose Route Start Last Admin Trade Name Freq PRN Reason Stop Dose Admin Acetaminophen 975 mg 12/30/23 19:51 12/30/23 20:26 Acetaminophen 325 Mg Tablet PO 12/30/23 19:52 975 mg ONCE ONE Administration Ibuprofen 400 mg 12/30/23 19:51 12/30/23 20:27 Ibuprofen 400 Mg Tablet PO 12/30/23 19:52 400 mg ONCE ONE Administration Medical Decision Making Medical Decision Making [facility] Narrative: 53-year-old female with history and clinical presentation, DDX: AOM, viral illness, trigeminal neuralgia, migraine, no evidence to suggest shingles. I reviewed all investigations and viral testing is negative for COVID-19/influenza. Patient provided with combination analgesics and discharged home as she has follow-up appointment. Differential Diagnosis Differential Diagnoses: The differential diagnosis associated with the presentation includes Please see the discussion above Admission/Observation Consideration of admission/observation: Escalation of care including admission/observation considered Please see the discussion above Lab Data Labs: Lab Results 12/30/23 Range/Units 18:48 Influenza Type A (PCR) NEGATIVE (Negative) Influenza Type B (PCR) NEGATIVE (Negative) RSV RNA Qual (PCR) NEGATIVE (Negative) SARS-CoV-2 RNA (RT-PCR) NEGATIVE (Negative) External Record Review External record reviewed: Outpatient record and Prior outpatient labs Critical Care Time Critical Care Time Critical Care Time: Yes Total Critical Care Time: 30 Attestation: I personally attest to this time spent taking care of the patient. Discharge Plan Discharge Clinical Impression: Trigeminal neuralgia, Left ear pain Patient Disposition: Home, Self-Care Instructions: Trigeminal Neuralgia (ED), Paresthesia (ED), Earache (ED) Additional Instructions: 1. Tylenol 1000 mg, orally, every 6 hours as needed for pain control. Do not exceed 4000 mg. 2. Ibuprofen 400 mg, orally with milk or food, every 6 hours as needed for pain control. 3. Please follow-up with your primary care doctor at your earliest convenience to discuss the possibility of trigeminal neuralgia. Return to the ER for any worsening symptoms. Prescriptions: No Action yzgdqhkdaa-zdqafdljchqfy-gcfm 50-325-40 mg tablet 1 tab PO Q6H PRN (Reason: pain) Qty: 20 0RF cyclobenzaprine 10 mg tablet 10 mg PO TID PRN (Reason: muscle spasm) Qty: 14 0RF lidocaine 5 % adhesive patch,medicated 1 patch topical DAILY Qty: 30 0RF Rx Instructions: leave on most painful area for up to 12 hrs ibuprofen 600 mg tablet 600 mg PO Q6H PRN (Reason: pain) Qty: 30 0RF ondansetron 4 mg tablet,disintegrating 4 mg PO Q8H PRN (Reason: nausea and vomiting) Qty: 20 0RF ibuprofen 600 mg tablet 600 mg PO TID PRN (Reason: pain) Qty: 14 0RF cyclobenzaprine 10 mg tablet 10 mg PO TID PRN (Reason: muscle spasm) Qty: 10 0RF Referrals: John Flowers MD [Primary Care Provider] - Interventions: ED Discharge Assessment Last Done: 12/30/23 20:30 Discharge Date/Time: 12/30/23 20:31
[2023-12-30 19:29] LABS: Influenza A PCR NEGATIVE (Negative); Influenza B PCR NEGATIVE (Negative); Resp Syncy Virus RNA Qual PCR NEGATIVE (Negative); SARS COV2 PCR INHOUSE NEGATIVE (Negative)
[2023-12-30] MEDS: Acetaminophen 325 MG TABLET 975 MG PO (20:26)
[2023-12-30] MEDS: Ibuprofen 400 MG TABLET PO (20:27)
[2023-12-30 20:30] VITALS: BP 148/93; PULSE 76; RESP 16; TEMP 37; O2SAT 97
== END 2023-12-30 20:31 | disposition home or self-care (01) ==
PROVIDERS: Physician Assistant Medical; Emergency Provider Student in an Organized Health Care Education/Training Program; PCP Family Medicine
DX: G50.0 Trigeminal neuralgia (principal); H92.02 Otalgia, left ear; Z11.52 Encounter for screening for COVID-19; Z20.828 Contact with and (suspected) exposure to other viral communicable diseases
CPT/HCPCS: 0241U; 99283

== ENCOUNTER 2025-07-05 15:46 | Emergency (ER) | payer OTHER, SELFPAY ==
--- NOTE | 2025-07-05 | ECG_ITS ---
Test Reason : NEURO Blood Pressure : */* mmHG Vent. Rate : 56 BPM Atrial Rate : 56 BPM P-R Int : 164 ms QRS Dur : 96 ms QT Int : 454 ms P-R-T Axes : 33 -17 -6 degrees QTcB Int : 438 ms Sinus bradycardia Moderate voltage criteria for LVH, may be normal variant ( R in aVL , [employer] product ) Abnormal ECG No previous ECGs available Referred By: Sylvia Reid Electronically Signed By: BRITTANY BYERS
--- NOTE | ~2025-07-05 | CT_ITS ---
CLINICAL HISTORY: cva CT head without contrast Comparison: 08/08/2022 Findings: No intracranial mass, midline shift, hydrocephalus, or acute hemorrhage. No acute process in sinuses or mastoids. No acute bony abnormality. Impression: No acute intracranial process This document has been electronically signed by: Michael Delaney MD on 07/05/2025 19:57:51
--- NOTE | ~2025-07-05 | CT_ITS ---
CLINICAL HISTORY: cva CT angiogram head/teller of Ferreira with contrast, Multiplanar reconstructions and 3D postprocessing Comparison: None provided Findings: Normal configuration of the teller of Ferreira vessels. No acute filling defect or vessel truncation. Dural venous sinuses patent. No aneurysm or central vascular abnormality. No peripheral vascular malformations. Impression: No acute vascular abnormalities CT angiogram of the neck/carotid arteries with contrast, Multiplanar reconstructions and MIPS Comparison: None provided Findings: Great vessel origins patent at aortic arch. Bilateral subclavian arteries patent. Bilateral vertebral artery origins patent. No evidence for vertebral dissection. Vertebrals equal in caliber. Common carotid arteries are unremarkable. No bilateral internal carotid artery stenosis. No soft tissue abnormality. No acute bony abnormalities. Impression: No significant vascular abnormalities This document has been electronically signed by: Michael Delaney MD on 07/05/2025 20:25:40
[2025-07-05 16:05] VITALS: BP 162/76; PULSE 62; RESP 16; TEMP 36.8; O2SAT 97; BMI 30.3
--- NOTE | 2025-07-05 16:05 | ED_ITS ---
[facility] - General Adult General Chief complaint: Neuro Symptoms/Deficit Stated complaint: Facial numbness, head pressure Time Seen by Provider: 07/05/25 18:32 Source: patient Mode of arrival: ambulatory Limitations: no limitations History of Present Illness ED Provider: Dr. Reid HPI narrative: 54-year-old female history of hypertension presented hospital today for left- sided numbness. This started around 13:00 today. Patient stated that since then she has bilateral numbness of her face. Patient is endorsing some headache and dizziness with this as well. Patient stated that this more of a lightheaded dizziness. Patient has no weakness in her extremity or difficulty with her speech. Denies any recent illness or fever. Denies any chest pain or shortness of breath. Related Data Previous Rx's ?Medication ?Instructions ?Recorded lyecxwqcut-bvocjcqxhsaqv-hippvwqw 1 tab PO Q6H PRN beba n #20 tabs 08/08/22 50 mg-325 mg-40 mg tablet cyclobenzaprine 10 mg tablet 10 mg PO TID PRN muscle s pasm #14 08/08/22 tabs ibuprofen 600 mg tablet 600 mg PO Q6H PRN pain #30 t abs 08/08/22 lidocaine 5 % topical patch 1 patch topical DAILY #30 ea 08/08/22 ondansetron 4 mg disintegrating 4 mg PO Q8H PRN nausea and 08/08/22 tablet vomiting #20 tabs cyclobenzaprine 10 mg tablet 10 mg PO TID PRN muscle s pasm #10 08/12/22 tabs ibuprofen 600 mg tablet 600 mg PO TID PRN pain #14 t abs 08/12/22 butalbital 50 mg-acetaminophen 300 1 cap PO Q8H PRN pa in 4 days #12 07/05/25 mg-caffeine 40 mg-codeine 30 mg cap caps Allergies Allergy/AdvReac Type Severity Reaction Status Date / Time No Known Allergies Allergy Verified 07/05/25 16:07 Review of Systems 2 Review of Systems: Pertinent review of systems as mentioned in [facility]. All other system otherwise negative. [facility] Past Medical History [facility] Narrative: Medical history as mentioned in HPI Medical History Migraines Glaucoma Social History Social History Alcohol intake: never Smoked in Last 30 Days: No Use of substances other than those prescribed or required for medical reasons: No Advance Directives: No Advance Directives Information Provided: No Do you have a plan to hurt others: No Plan Physical Exam ED Exam Exam: General: Pleasant, no distress, interacting appropriately Head: Normacephalic, atraumatic ENT: oral mucosa moist, neck supple, no tracheal deviation Cardiovascular: regular rate, regular rhythm, no murmurs, rubbing, gallops Respiratory: CTAB, no wheeze, rales, rhonchi Gastrointestinal: Soft, non distended, non tender, non guarding Extremities: No limb pain or swelling, no calf tenderness Neurological: Awake and alert, numbness on the left face left arm left leg. No sign of weakness. Patient does complain of some paresthesia in the right side of her face as well. No sign of facial droop Skin: Warm and dry Psychiatric: Appropriate mood and thoughts Vital Signs: Vital Signs - 24 hr 07/05/25 16:05 07/05/25 18:16 07/05/25 20:07 Temperature 98.3 F 98.6 F Pulse Rate 62 58 69 Respiratory Rate 16 16 17 Blood Pressure 162/76 H 176/85 H 142/101 H Pulse Oximetry 97 96 98 Oxygen Delivery Method Room Air Room Air 07/05/25 22:24 Temperature Pulse Rate 63 Respiratory Rate 16 Blood Pressure 130/70 Pulse Oximetry 96 Oxygen Delivery Method Room Air BMI result Body Mass Index 30.3 NIH Stroke Scale Internal: Initial- Upon Arrival Level of Consciousness: Alert Level of Consciousness Questions: Answers both questions correctly Level of Consciousness Commands: Performs both tasks correctly Best Gaze: Normal Visual: No visual loss Facial Palsy: Normal Motor Arm (Right): No drift Motor Arm (Left): No drift Motor Leg (Right): No drift Motor Leg (Left): No drift Limb Ataxia: Absent Sensory: Mild to moderate sensory loss Best Language: No aphasia Dysarthia: Normal Extinction and Inattention: No abnormality Score: 1 Course Course Course Narrative: Rapid medical examination performed in triage by Camilla Candelario PA-C. Patient is a 54 year old assigned female at presenting to the emergency department with facial numbness and tingling. Patient states that over the last 3 hours she has had facial numbness and tingling. Detailed physical exam and review of systems are deferred to the clinician oncology. Labs ordered. Patient placed back in the waiting room pending room availability and results. Medications Administered Discontinued Medications Generic Name Dose Route Start Last Admin Trade Name Bartolome PRN Reason Stop Dose Admin Lactated Ringer's 1,000 mls @ 999 mls/hr 07/05/25 19:45 07/05/25 20:59 Lr IV 07/05/25 20:45 Infused .Q1H1M ROSEMARIE Infusion Magnesium Sulfate 2 gm in 50 mls @ 50 mls/hr 07/05/25 19:31 07/05/25 20:58 Magnesium Sulfate/H2o IV 07/05/25 20:30 Infused ONCE ONE Infusion Iohexol 75 ml 07/05/25 19:48 07/05/25 19:48 Iohexol 350 Mg/Ml 100 Ml Infus..Btl IV 07/05/25 19:49 75 ml ONCE ONE Administration Metoclopramide HCl 5 mg 07/05/25 19:31 07/05/25 19:58 Metoclopramide Hcl 10 Mg/2 Ml Vial IV 07/05/25 19:32 5 mg ONCE ONE Administration Medical Decision Making Medical Decision Making MDM Narrative: 54-year-old female history of hypertension presented hospital today for a left- sided numbness. And left-sided face showed numbness. Given patient's symptoms. Patient is still within the 24 hour window for possible LVO thrombectomy. We will plan to activate patient's for stroke at this time. Unfortunately patient is past the TNK window at this time. We will obtain a CT head CT angio head and neck. Patient is still having numbness on the left side of her body on exam. However she also has right-sided facial numbness which is an abnormal finding in the setting of CVA. She has no significant weakness on exam. Basic lab work will be obtained for the patient. NIH of 1 for sensation changes. I did consider TNK however patient is outside the window at time of my time of evaluation. Patient also has NIH of 1. I do not recommend TNK due to these reasons. CT head is negative for any signs of intracranial bleeding, patient's CTA head and neck did not show any signs of LVO. I suspect this is a complex migraine. On reassessment patient stated her headache has improved some however symptom has improved. She no longer has numbness in her left arm or left leg. Patient will be discharged at this time encouraged her to follow up with primary care doctor. She is agreement with this plan. Differential Diagnosis Differential Diagnoses: The differential diagnosis associated with the presentation includes CVA, complex migraine, TIA, anxiety Lab Data MDM Lab Attestation statement: I reviewed the patient's lab results. 07/05/25 16:56 07/05/25 16:56 Labs: Lab Results 07/05/25 07/05/25 Range/Units 16:56 19:55 WBC 7.9 (4.8-10.8) X10*3/uL RBC 4.26 (4.20-5.50) X10*6/uL Hgb 11.3 L (12.0-16.0) g/dl Hct 34.8 L (37.0-47.0) % MCV 81.7 (80.0-98.0) fL MCH 26.5 L (27.0-33.0) pg MCHC 32.5 (31.0-35.0) g/dl RDW 15.1 (11.0-16.0) % Plt Count 296 (160-400) X10*3/uL MPV 10.5 (9.4-12.3) fL Immature Gran % (Auto) 0.3 (0.0-0.4) % Neut % (Auto) 56.2 (45-73) % Lymph % (Auto) 30.7 (20-40) % Schuyler % (Auto) 8.1 (2-11) % Eos % (Auto) 3.8 (0-4) % Baso % (Auto) 0.9 (0-2) % Lymph # (Auto) 2.4 (1.2-4.9) X10*3/uL Schuyler # (Auto) 0.6 (0.1-1.2) X10*3/uL Eos # (Auto) 0.3 (0.0-0.4) X10*3/uL Baso # (Auto) 0.1 (0.0-0.2) X10*3/uL Abs Immat Gran (auto) 0.02 (0.00-0.03) X10*3/uL Absolute Neuts (auto) 4.4 (2.0-8.3) x10*3/uL Absolute Nucleated RBC 0.000 (0.0-0.012) X10*3/uL Nucleated RBC % (auto) 0.0 (0.0-0.2) /100WBC PT 12.1 (10.9-12.4) SEC INR 1.1 (0.9-1.1) Sodium 141 (135-145) mmol/L Potassium 4.1 (3.3-5.1) mmol/L Chloride 110 H (96-108) mmol/L Carbon Dioxide 25 (22-29) mmol/L Anion Gap 10 L (12-20) BUN 9 (9-16) mg/dL Creatinine 0.69 (0.5-1.4) mg/dL Estim Creat Clear Calc 82.5 Estimated GFR > 60 Random Glucose 90 (60-115) mg/dL Calcium 9.1 (8.4-10.2) mg/dL Magnesium 2.2 (1.6-2.6) mg/dL Total Bilirubin 0.2 (0.0-1.0) mg/dL AST 27 (5-31) U/L ALT 30 (0-31) U/L Alkaline Phosphatase 66 (39-117) U/L Total Protein 7.5 (6.5-8.0) g/dL Albumin 4.1 (3.5-5.0) g/dL Independent Interpretation I performed an independent interpretation of an: CT Scan Radiology Impression Discussion of test interpretation with radiology: I have reviewed the radiologist's reading. Critical Care Time Critical Care Time Critical Care Time: Yes Total Critical Care Time: 36 Attestation: Time is exclusive of separately billable procedures. Time includes: direct patient care, patient reassessment, coordination of patient care, interpretation of data (laboratory data, pulse oximetry, arterial blood gases and chest xrays), review of patient's medical records, medical consultation and documentation of patient care. Procedures excluded from critical care time: central intravenous line placement and electrocardiography. Discharge Plan Discharge Clinical Impression: Migraine Qualifiers: Migraine type: unspecified Status migrainosus presence: without status migrainosus Intractability: not intractable Qualified Code(s): G43.909 - Migraine, unspecified, not intractable, without status migrainosus Patient Disposition: Home, Self-Care Instructions: Migraine Headache (ED) Additional Instructions: Your CT head scans were negative for any blockages or bleed. I think you have a complex migraine. Take the fiorcet as needed for headache. You may also take Excedrin over the counter. Prescriptions: New cpkgqtgiux-dcqxyxnwrl-egs-cod [id number] mg capsule 1 cap PO Q8H PRN (Reason: pain) 4 Days Qty: 12 0RF No Action jrveztaxkv-lyflruoennxrz-cnpo 50-325-40 mg tablet 1 tab PO Q6H PRN (Reason: pain) Qty: 20 0RF cyclobenzaprine 10 mg tablet 10 mg PO TID PRN (Reason: muscle spasm) Qty: 14 0RF lidocaine 5 % adhesive patch,medicated 1 patch topical DAILY Qty: 30 0RF Rx Instructions: leave on most painful area for up to 12 hrs ibuprofen 600 mg tablet 600 mg PO Q6H PRN (Reason: pain) Qty: 30 0RF ondansetron 4 mg tablet,disintegrating 4 mg PO Q8H PRN (Reason: nausea and vomiting) Qty: 20 0RF ibuprofen 600 mg tablet 600 mg PO TID PRN (Reason: pain) Qty: 14 0RF cyclobenzaprine 10 mg tablet 10 mg PO TID PRN (Reason: muscle spasm) Qty: 10 0RF Print Language: Italian
[2025-07-05 17:00] LABS: MANUAL DIFF FLAG NO
[2025-07-05 17:04] LABS: Hematocrit 34.8 % (37.0-47.0); Hemoglobin 11.3 g/dl (12.0-16.0); Imm Gran Abs Auto 0.02 X10*3/uL (0.00-0.03); Imm Gran Pct Auto 0.3 % (0.0-0.4); Lymphocytes Absolute Auto 2.4 X10*3/uL (1.2-4.9); Mean Corpuscular HGB Conc 32.5 g/dl (31.0-35.0); Mean Corpuscular Hemoglobin 26.5 pg (27.0-33.0); Mean Corpuscular Volume 81.7 fL (80.0-98.0); NRBC Abs Auto 0.000 X10*3/uL (0.0-0.012); NRBC Pct Auto 0.0 /100WBC (0.0-0.2); Platelet Count 296 X10*3/uL (160-400); Red Blood Count 4.26 X10*6/uL (4.20-5.50); White Blood Count 7.9 X10*3/uL (4.8-10.8)
[2025-07-05 17:16] LABS: Alanine Aminotransferase 30 U/L (0-31); Albumin Level 4.1 g/dL (3.5-5.0); Alkaline Phosphatase 66 U/L (39-117); Anion Gap 10 (12-20); Aspartate Amino Transferase 27 U/L (5-31); Blood Urea Nitrogen 9 mg/dL (9-16); Calcium 9.1 mg/dL (8.4-10.2); Carbon Dioxide 25 mmol/L (22-29); Chloride 110 mmol/L (96-108); Creatinine Clr Calc Pharmacy 82.5; Estimated Glomerular Filt Rate > 60; Magnesium 2.2 mg/dL (1.6-2.6); Potassium 4.1 mmol/L (3.3-5.1); Sodium 141 mmol/L (135-145); Total Protein 7.5 g/dL (6.5-8.0)
[2025-07-05 18:16] VITALS: BP 176/85; PULSE 58; RESP 16; O2SAT 96
--- NOTE | 2025-07-05 18:31 | PC.NURSE ---
Addendum entered by Alissa Murphy RN 07/05/25 18:32: Patient is a 54 year female presenting to the emergency department with facial numbness and tingling which started at 1pm and appeared to subside and now she c/o heaviness to her head. Alert and oriented. Tongue midline. no droop. EOMs intact. No drift in all 4 extremities. c/o sensation difference between left and right side. Lungs clear bilat. Respirations even and non-labored. Abdomen soft, non-tender with positive bowel sounds. Positive pedal pulses with no edema noted. Original Note: Medical History Migraines Glaucoma
--- OUTSIDE RECORDS SUMMARY | 2025-07-05 18:54 | XMS_ITS | Clinical Summary ---
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 Name Role Phone Unavailable Primary Care Provider Unavailabl e Social History Tobacco Use Types Packs/Day Years Used Date Smoking Tobacco: Never Assessed Comments Unknown Sex and Gender Information Value Date Recorded Sex Assigned at Not on file Legal Sex Female 9:07 AM EST Gender Identity Not on file Sexual Orientation Not on file Plan of Treatment Health Maintenance Due Date Last Done Comments Breast Cancer Screening 1970 DTaP,Tdap,and Td Vaccines (1 - Tdap) 12/24/1990 Hepatitis B Vaccines (1 of 3 - 19+ 3-dose series) 12/24/1990 Cervical Cancer Screening: P ap Smear 12/24/1992 Pneumococcal Vaccine: 50+ Ye ars (1 of 1 - PCV) 12/24/2021 Zoster Vaccines (1 of 2) 12/24/2021 Colorectal Cancer Screening: Colonoscopy 09/09/2022 HIV Screening 09/09/2022 Hepatitis C Screening 09/09/2022 Social Influencers of Health Screening 09/09/2022 Depression Screening 10/07/2024 COVID-19 Vaccine (1 - 2023-2 5 season) 2025 Influenza Vaccine (#1) 2025 HIB Vaccines Aged Out No longer eligi ble based on patient's age to complete this topic HPV Vaccines Aged Out No longer eligi ble based on patient's age to complete this topic Hepatitis A Vaccines Aged Out No long er eligible based on patient's age to complete this topic IPV Vaccines Aged Out No longer eligi ble based on patient's age to complete this topic MMR Vaccines Aged Out No longer eligi ble based on patient's age to complete this topic Meningococcal ACWY Vaccine Aged Out N o longer eligible based on patient's age to complete this topic Meningococcal B Vaccine Aged Out No l onger eligible based on patient's age to complete this topic RSV Immunization Patients Un stalin months Aged Out No longer eligible b ased on patient's age to complete this topic Varicella Vaccines Aged Out No longer eligible based on patient's age to complete this topic
[2025-07-05] MEDS: iohexoL 350 MG/ML 100 ML INFUS..BTL 75 ML IV (19:48)
[2025-07-05] MEDS: Magnesium Sulfate/H2O 2 GM/50 ML PIGGYBACK IV (19:58)
[2025-07-05] MEDS: Lactated Ringers 1,000 ML 999 ML IV (19:58)
[2025-07-05 20:07] VITALS: BP 142/101; PULSE 69; RESP 17; TEMP 37; O2SAT 98
[2025-07-05 20:24] LABS: INTERNATIONAL NORM RATIO 1.1 (0.9-1.1); Prothrombin Time 12.1 SEC (10.9-12.4)
[2025-07-05 22:24] VITALS: BP 130/70; PULSE 63; RESP 16; O2SAT 96
[2025-07-05 22:52] VITALS: BP 130/70; PULSE 63; RESP 16; TEMP 37; O2SAT 96
== END 2025-07-05 22:59 | disposition home or self-care (01) ==
PROVIDERS: Physician Assistant Medical; Emergency Provider Student in an Organized Health Care Education/Training Program; PCP Family Medicine
DX: G43.909 Migraine, unspecified, not intractable, without status migrainosus (principal); R11.2 Nausea with vomiting, unspecified; M54.2 Cervicalgia; R29.701 NIHSS score 1; R00.1 Bradycardia, unspecified; Z79.899 Other long term (current) drug therapy
CPT/HCPCS: 36415; 70450; 70496; 70498; 80053; 83735; 85025; 85610; 93005; 96361; 96374; 96375; 99285; J2765; J3475; J7120; Q9967

== ENCOUNTER → 2025-07-05 19:26 | Outpatient (BNV) | payer OTHER, SELFPAY | PROVIDERS: Emergency Provider Student in an Organized Health Care Education/Training Program; PCP Family Medicine; Visit Provider Radiology Diagnostic Radiology | DX: I63.9 Cerebral infarction, unspecified (principal) | CPT/HCPCS: 70450; 70496; 70498 ==

== ENCOUNTER → 2025-07-05 20:12 | Outpatient (BNV) | payer OTHER, SELFPAY | PROVIDERS: Emergency Provider Student in an Organized Health Care Education/Training Program; PCP Family Medicine; Visit Provider Internal Medicine | DX: R00.1 Bradycardia, unspecified (principal) | CPT/HCPCS: 93010 ==